=== PATIENT | female | born 1970 | race Caucasian/White ===

== ENCOUNTER 2017-03-27 05:19 | Inpatient (IN) | payer OTHER ==
[~2017-03-27] VITALS: Ht 167.6 cm; Wt 72.0 kg
[~2017-03-27 05:19] MED LIST: ACET325T33 PO; ALPR0.5T PO; CARI350T29 PO; GABA300C16 PO; METF500T NGT; NICO-524 TRANSDERM; OXYC15TA PO; QUET300T13 PO; TOR30I IV; TYL650R PR; ZOF4I IV
[2017-07-19] VITALS (7 sets, daily range): BP systolic 101–124; BP diastolic 62–76; PULSE 67–90; RESP 18–20; Ht 167.6 cm; Wt 72.0 kg
[2017-07-19] MEDS ORDERED: NITROGLYCERIN (SL) 0.4 MG TAB SL PRN (12:30)
[2017-07-19] MEDS ORDERED: morphine 2 MG INJ IV PRN ×2 (12:30→15:30)
[2017-07-19] MEDS ORDERED: MAGNESIUM HYDROXIDE 30ML CUP PO PRN (12:30)
[2017-07-19] MEDS ORDERED: ACETAMINOPHEN 325 MG TAB PO PRN (12:30)
[2017-07-19] MEDS ORDERED: hydrALAzine 20 MG INJ IV PRN (12:30)
[2017-07-19] MEDS ORDERED: NACL 0.9% 3 ML SYG IV SCH (12:30)
[2017-07-19] MEDS ORDERED: NA PHOSPHATE/BIPHOS 133 ML ENEMA PR PRN (12:30)
[2017-07-19] MEDS ORDERED: LORAZEPAM 2 MG INJ IV PRN (12:30)
[2017-07-19] MEDS ORDERED: ONDANSETRON 4 MG INJ IV PRN (12:30)
[2017-07-19] MEDS ORDERED: ALBUTEROL/IPRATROPIUM (NEB) 3 ML AMP HHN PRN (12:30)
[2017-07-19] MEDS ORDERED: DOCUSATE SODIUM 100 MG CAP PO PRN (12:30)
[2017-07-19] MEDS: INSULIN ASPART [NOVOLOG] 3 ML PEN SC SCH ×3 (13:00→22:46)
[2017-07-19] MEDS: HYDROCODONE/APAP (5/325) TAB PO PRN (13:03)
[2017-07-19 13:58] LABS: PROTIME 13.2 Sec (12.2-14.2)
[2017-07-19 13:59] LABS: PARTIAL THROMBOPLASTIN TIME 28.8 Sec (25.0-35.0)
[2017-07-19] MEDS: SOD CHLORIDE 0.9% 1,000 ML IV SCH (13:59)
[2017-07-19] MEDS: LEVOFLOXACIN 750MG/D5W (PMX) 150 ML IVPB SCH (14:13)
[2017-07-19] MEDS: HEPARIN 5,000 UNIT/0.5 ML VIAL SC SCH ×2 (14:32→21:00)
[2017-07-19] MEDS ORDERED: ALPRAZOLAM 0.5 MG TAB PO PRN (15:30)
[2017-07-19] MEDS: oxyCODONE 15 MG TAB PO SCH ×2 (17:31→22:29)
--- NOTE | 2017-07-19 17:45 | HP ---
DATE OF ADMISSION: 07/19/2017 CHIEF COMPLAINT: Epigastric pain and vomiting. HISTORY OF PRESENT ILLNESS: The patient is a 47-year-old female with a past medical history of fibromyalgia, diabetes, hypertension, asthma and depression who presented at an outside hospital earlier today because of epigastric pain and vomiting symptoms. She was also feeling weakness and dizziness, but no loss of consciousness, no headache. She had been feeling weakness for the last 5 days, dizziness for 1 day, and also some increased sweats and decreased urine frequency at home for 1 day prior to admission. She was transferred over here from outside hospital [place] due to insurance purposes, but she did have a workup there earlier this morning. The patient describes her vomiting symptoms also for the last 1 or 2 days at home, nonbilious and nonbloody. She has been taking Keflex at home, and denies any dysuria or hematuria. No upper or lower GI bleeding. No diarrhea or constipation. No chest pain or shortness of breath. The patient was at [facility] from the end of 06/2017 until 07/08/2017, so for about 5 days she was treated for sepsis secondary to a UTI, and she went home on Keflex. Since that time she has been having the weakness symptoms as mentioned above. When she presented at the outside hospital today she had a lactic acid elevated at 4.2, and a white count of 16,000, but her chest x-ray was negative. UA was negative. A head CT was performed because she had a lot of nystagmus there, but the results showed no acute intracranial pathology. She receive IV fluids and meclizine as well as antiemetics at the outside hospital before being transferred over here. PAST MEDICAL HISTORY: As stated above. ALLERGIES: CHICKEN, PORK, FISH, CITRUS FRUITS. PAST SURGICAL HISTORY: She has had some kind of brain surgery in the past, a cholecystectomy and appendectomy in the past. FAMILY HISTORY: Mother had thyroid problems. Father with diabetes. SOCIAL HISTORY: She smokes half a pack cigarettes a day. Negative for alcohol use. PHYSICAL EXAMINATION: VITAL SIGNS: T-max 98.4, pulse 68 to 80, respirations 20, blood pressure 101/69, O2 saturation 99 percent on room air. GENERAL APPEARANCE: The patient is lying in bed, answering questions appropriately, in no acute distress. HEENT: Pupils are equal, round and reactive to light. Extraocular muscles areintact. NECK: Supple. No thyromegaly. LUNGS: Clear to auscultation bilaterally. CARDIOVASCULAR: S1 and S2 heard. No rubs or gallops. ABDOMEN: Soft, nontender and nondistended. Normal bowel sounds. No rebound or guarding. MUSCULOSKELETAL: No lower extremity edema bilaterally. NEUROLOGIC: No focal deficits. LABORATORY DATA: WBC 16.2, hemoglobin 14, hematocrit 45, platelets normal. The basic metabolic panel was normal. The UA was negative. Nitrites negative. Leukocyte esterase positive. IMAGING DATA: Chest x-ray showed no acute findings and again the head CT results are as mentioned above. ASSESSMENT AND PLAN: The patient is a 46-year-old female with prior history of hypertension, diabetes, fibromyalgia, ankle fracture and asthma who presents with weakness, dizziness and vomiting with signs of sepsis with unclear source. 1. Weakness and dizziness with signs of sepsis, again her lactic acid is 4.2. Continue aggressive fluid IV hydration, recheck urine test here while in the hospital. If she has leukocytosis for now put her on low-dose broad-spectrum antibioticsuntil we get final urine results. Follow culture results as well. Tylenol p.r.n. pain and fevers. Also check TSH, A1c and lipid panel. Continue to trend the lactic acid as well. 2. Type 2 type 2 diabetes. Check A1c. Put her on sliding scale insulin. 3. Essential hypertension. Continue current blood pressure medications including hydralazine p.r.n. systolic greater than 160. 4. Smoking history. Counseled about cessation. Continue to [____] asthma. For present shortness of breath symptoms DuoNebs p.r.n. 5. History of fibromyalgia. Continue current pain medications, but at a lower dose and frequency than what she is on at home given her weakness symptoms. We will also get pain management consultation to help with management of this as she is also showing [____]of drug-seeking behavior. 6. GI prophylaxis. PPI. 7. DVT prophylaxis. Heparin subcutaneous. Consider PT consult as well especially given her history of ankle fracture. 8. Vertigo. Continue to monitor for now. IV fluids, PT consult. Dictated By: Braulio Obando MD /mark/renato /Document#: [id number]
[2017-07-19] MEDS ORDERED: QUETIAPINE 100 MG TAB PO SCH (21:00)
[2017-07-19] MEDS: CARISOPRODOL 350 MG TAB PO SCH (22:23)
[2017-07-19] MEDS: GABAPENTIN 300 MG CAP PO SCH (22:24)
[2017-07-19] MEDS: QUETIAPINE 100 MG TAB PO SCH (22:24)
[2017-07-20] VITALS (11 sets, daily range): BP systolic 111–115; BP diastolic 70–82; PULSE 66–88; RESP 18–20
[2017-07-20] MEDS ORDERED: ACCU-CHEK XX SCH (02:00)
[2017-07-20] MEDS: SOD CHLORIDE 0.9% 1,000 ML IV SCH ×3 (05:21→18:20)
[2017-07-20] MEDS: PANTOPRAZOLE (EC) 40 MG TAB PO SCH (05:23)
[2017-07-20 07:03] LABS: BASOPHILS % 0.5 % (0.0-2.0); EOSINOPHILS # 0.2 10^3/ul (0.0-0.5); HEMOGLOBIN 11.2 g/dl (12.0-16.0); LYMPHOCYTES # 2.7 10^3/ul (0.8-2.9); LYMPHOCYTES % 35.7 % (15.0-51.0); MEAN CORPUSCULAR HEMOGLOBIN 26.7 pg (29.0-33.0); MEAN CORPUSCULAR HGB CONC 31.1 g/dl (32.0-37.0); MEAN CORPUSCULAR VOLUME 85.9 fl (82.0-101.0); MEAN PLATELET VOLUME 11.6 fl (7.4-10.4); MONOCYTE # 0.4 10^3/ul (0.3-0.9); MONOCYTES % 5.2 % (0.0-11.0); NEUTROPHIL # 4.2 10^3/ul (1.6-7.5); NEUTROPHILS % 56.2 % (39.0-77.0); PLATELET COUNT 184 10^3/UL (140-415); RED BLOOD COUNT 4.19 10^6/ul (4.20-5.40); RED CELL DISTRIBUTION WIDTH 14.6 % (11.5-14.5); WHITE BLOOD COUNT 7.4 10^3/ul (4.8-10.8)
[2017-07-20] MEDS ORDERED: INSULIN ASPART [NOVOLOG] 3 ML PEN SC SCH (07:25)
[2017-07-20] MEDS: HYDROCODONE/APAP (5/325) TAB PO PRN (07:41)
[2017-07-20 07:53] LABS: THYROID STIMULATING HORMONE 3.64 MIU/L (0.465-4.680)
[2017-07-20 08:00] LABS: CALCIUM 8.2 mg/dl (8.4-10.2); CHOL/HDL RATIO 3.4 RATIO; CREATININE 0.62 mg/dl (0.44-1.00); MAGNESIUM 1.6 mg/dl (1.7-2.5); PHOSPHORUS 3.7 mg/dl (2.5-4.9); POTASSIUM 3.7 mmol/L (3.5-5.1)
[2017-07-20] MEDS: Insulin NOVOLOG SS MILD Algorithm (SS with meals and bedtime) SC SCH ×4 (08:06→21:00)
[2017-07-20] MEDS: CARISOPRODOL 350 MG TAB PO SCH ×3 (09:11→20:35)
[2017-07-20] MEDS: NICOTINE (21 MG/24 HR) PATCH TRANSDERM SCH (09:12)
[2017-07-20] MEDS: LEVOFLOXACIN 750MG/D5W (PMX) 150 ML IVPB SCH (09:19)
[2017-07-20] MEDS: GABAPENTIN 300 MG CAP PO SCH ×3 (09:19→20:35)
[2017-07-20] MEDS: HEPARIN 5,000 UNIT/0.5 ML VIAL SC SCH ×2 (09:31→20:49)
--- NOTE | 2017-07-20 12:09 | PDOCDIS ---
Discharge Instructions CONDITION Patient Condition: Stable HOME CARE INSTRUCTIONS: Diet Instructions: Low Fat /Cholesterol ACTIVITY: Activity Restrictions: Slowly Increase Activity Avoid heavy lifting FOLLOW UP/APPOINTMENTS Follow-up Plan Please take your medications as prescribed, please follow-up with her regular doctor in the clinic in the next 1 week. MALINDA DAVIS Jul 20, 2017 12:09
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
[2017-07-20] MEDS ORDERED: LEVO750T8 PO (12:22)
--- NOTE | 2017-07-20 12:22 | DS ---
Date/Time of Note Date/Time of Note DATE: 07/20/17 TIME: 12:15 Discharge Summary Admission/Discharge Info Admit Date/Time Jul 19, 2017 at 11:40 Discharge Date/Time Discharge Diagnosis 1. Weakness and dizziness with signs of sepsis-improved 2. Type 2 type 2 diabetes. 3. Essential hypertension. 4. Smoking history. Counseled about cessation. 5. History of fibromyalgia. 6. Vertigo. Patient Condition: Stable Hospital Course 47-year-old female with a past medical history of fibromyalgia, diabetes, hypertension, asthma, smoking, and depression who presented at an outside hospital before being transferred to our hospital due to insurance reasons because of epigastric pain and vomiting symptoms. She was also feeling weakness and dizziness. She was found with slightly elevated lactic acid level , with leukocytosis, but no fevers, she was admitted and given IV fluids and antibiotics although there was no clear source of infection. Patient had been treated about 10 days prior to this admission for sepsis secondary to UTI at an outside hospital as well. He is also seen by pain management doctor because of chronic low back pain issues, and there was some adjustments made to her pain control medications. Over the course of her hospital stay her substance symptoms resolved, her white count normalized, she had no fevers, she was able to ambulate, tolerated p.o. diet, with physical therapy as well. Her lactic acidosis also resolved as well. She was counseled on smoking cessation as well. See below for full list of discharge medications. Home Meds Active Scripts Acetaminophen* (Acephen*) 650 Mg Supp, 650 MG IN Q6H Y for PAIN LEVEL 1-3 OR FEVER for 30 Days, SUPP Prov:GABRIEL,KAI V. INCIDENT COORDINATOR 05/10/16 Acetaminophen* (Tylenol*) 325 Mg Tablet, 650 MG PO Q6H Y for PAIN LEVEL 1-3 OR FEVER for 30 Days, TAB Prov:GABRIEL,KAI V. INCIDENT COORDINATOR 05/10/16 Ondansetron Hcl* (Zofran*) 2 Mg/Ml Soln, 4 MG IV Q6H Y for NAUSEA AND/OR VOMITING for 30 Days Prov:GABRIEL,KAI V. INCIDENT COORDINATOR 05/10/16 Nicotine* (Nicoderm* Patch) 21 mg/day Patch, 1 PATCH TRANSDERM DAILY for 30 Days , PATCH Prov:GABRIEL,KAI V. INCIDENT COORDINATOR 05/10/16 Metformin Hcl (Glucophage) 500 Mg Tablet, 500 MG NGT BID WITH MEALS for 30 Days , TAB Prov:KAI GABRIEL V. INCIDENT COORDINATOR 05/10/16 Ketorolac Tromethamine* (Ketorolac Tromethamine*) 30 Mg/Ml Vial, 30 MG IV Q6H Y for PAIN LEVEL 1-3 for 30 Days, VIAL Prov:KAI GABRIEL V. INCIDENT COORDINATOR 05/10/16 Reported Medications Alprazolam* (Xanax*) 0.5 Mg Tab, 0.5 MG PO Q8H Y for ANXIETY, TAB 05/07/16 Quetiapine Fumarate* (Seroquel*) 300 Mg Tablet, 300 MG PO HS, TAB 05/07/16 Gabapentin* (Gabapentin*) 300 Mg Capsule, 600 MG PO TID, #180 CAP 05/07/16 Carisoprodol* (Carisoprodol*) 350 Mg Tablet, 350 MG PO TID, TAB 05/07/16 Oxycodone Hcl* (IR) (Oxycodone Hcl*) 15 Mg Tablet, 15 MG PO QID, TAB 05/07/16 Follow-up Plan Please take your medications as prescribed, please follow-up with her regular doctor in the clinic in the next 1 week. Primary Care Provider Barb Dickerson Time spent on discharge: > 30 minutes Pending Labs Laboratory Tests Test 07/19/17 13:20 07/19/17 13:28 07/19/17 15:53 07/19/17 17:29 Prothrombin Time 13.2Sec (12.2-14.2) Prothrombin Time Ratio 1.0 INR International Normalized Ratio 1.00 Activated Partial Thromboplast Time 28.8Sec (25.0-35.0) Free Thyroxine 0.99ng/dl (0.64-1.79) Lipase 58U/L (23-300) Ethyl Alcohol Level < 10.0mg/dl Bedside Glucose 113mg/dL (70-220) Test 07/19/17 18:51 07/19/17 22:41 07/20/17 00:42 07/20/17 06:07 Lactic Acid Level 1.3mmol/L (0.5-2.0) 1.3mmol/L (0.5-2.0) 1.3mmol/L (0.5-2.0) Bedside Glucose 188mg/dL (70-220) White Blood Count 7.410^3/ul (4.8-10.8) Red Blood Count 4.1910^6/ul (4.20-5.40) Hemoglobin 11.2g/dl (12.0-16.0) Hematocrit 36.0% (37.0-47.0) Mean Corpuscular Volume 85.9fl (82.0-101.0) Mean Corpuscular Hemoglobin 26.7pg (29.0-33.0) Mean Corpuscular Hemoglobin Concent 31.1g/dl (32.0-37.0) Red Cell Distribution Width 14.6% (11.5-14.5) Platelet Count 93076^3/UL (140-415) Mean Platelet Volume 11.6fl (7.4-10.4) Neutrophils % 56.2% (39.0-77.0) Lymphocytes % 35.7% (15.0-51.0) Monocytes % 5.2% (0.0-11.0) Eosinophils % 2.0% (0.0-7.0) Basophils % 0.5% (0.0-2.0) Nucleated Red Blood Cells % 0.0/100WBC (0.0-0.0) Neutrophils # 4.210^3/ul (1.6-7.5) Lymphocytes # 2.710^3/ul (0.8-2.9) Monocytes # 0.410^3/ul (0.3-0.9) Eosinophils # 0.210^3/ul (0.0-0.5) Basophils # 0.010^3/ul (0.0-0.1) Nucleated Red Blood Cells # 0.010^3/ul (0.0-0.0) Sodium Level 137mmol/L (135-144) Potassium Level 3.7mmol/L (3.5-5.1) Chloride Level 105mmol/L (97-110) Carbon Dioxide Level 29mmol/L (21-31) Anion Gap 7 (8-16) Blood Urea Nitrogen 3mg/dl (7-20) Creatinine 0.62mg/dl (0.44-1.00) Glucose Level 146mg/dl (70-220) Hemoglobin A1c 8.2% (0-5.9) Calcium Level 8.2mg/dl (8.4-10.2) Phosphorus Level 3.7mg/dl (2.5-4.9) Magnesium Level 1.6mg/dl (1.7-2.5) Triglycerides Level 229mg/dl (0-149) Cholesterol Level 125mg/dl (100-200) LDL Cholesterol, Calculated 43mg/dl HDL Cholesterol 36mg/dl (34-88) Cholesterol/HDL Ratio 3.4RATIO Thyroid Stimulating Hormone (TSH) 3.640MIU/L (0.465-4.680) Test 07/20/17 08:03 Bedside Glucose 161mg/dL (70-220) MALINDA DAVIS Jul 20, 2017 12:22
[2017-07-20] MEDS ORDERED: MAGNESIUM SULFATE 1 GM/D5W 100 ML IVPB ONE (14:00)
[2017-07-20] MEDS: oxyCODONE 15 MG TAB PO SCH ×3 (15:10→20:36)
[2017-07-20] MEDS: INSULIN ASPART [NOVOLOG] 3 ML PEN SC SCH ×2 (17:23→20:59)
--- NOTE | 2017-07-20 18:59 | PN ---
DATE: 07/20/2017 SUBJECTIVE DATA: Patient is alert, feels better, looks comfortable. Denies pain. No vomiting. No diarrhea. No dysuria. LABORATORY AND DIAGNOSTIC DATA: WBC 7.4, no shift, no bands. BUN 3, creatinine 0.62. Lactic acid 2.6. MICROBIOLOGY: Urine culture pending. ANTIMICROBIALS: The patient is on Levaquin. PHYSICAL EXAMINATION: GENERAL: Well-developed, middle-aged woman who is alert, in no distress. HEENT: Head atraumatic, normocephalic. Sclerae anicteric. Buccal mucosa pink. NECK: Supple. CHEST: Chest rise symmetrical. Breath sounds clear. HEART: S1, S2. ABDOMEN: Soft, bowel sounds present with left CVA tenderness absent. EXTREMITIES: Without cyanosis. The patient has right lower extremity chronic changes status post ankle surgery, no erythema. ASSESSMENT: 1. Systemic inflammatory response syndrome on admission, with dizziness and decreased urine output at home as well as increased sweating. 2. History of recent pyelonephritis with bacteremia for which patient was hospitalized at [facility] and was in ICU for 3 days, the patient apparently was discharged home on 7 days to oral Keflex which she completed. 3. Fibromyalgia. 4. History of cerebrovascular accident. 5. Diabetes. 6. Hypertension. 7. History of right ankle surgery with hardware placement. PLAN: 1. The patient remains stable. 2. We are going to send urine for culture. 3. Continue Levaquin for now. Dictated By: Jeffrey Dickerson NP /mark/dejon /Document#: [id number]
[2017-07-20] MEDS ORDERED: INSULIN GLARGINE [LANtus] 3 ML PEN SC SCH (20:00)
[2017-07-20] MEDS: QUETIAPINE 100 MG TAB PO SCH (20:58)
[2017-07-20] MEDS ORDERED: MICONAZOLE 200 MG VAG SUPP VAG SCH (21:00)
[2017-07-20 23:23] LABS: ADD UMIC NO; UR ASCORBIC ACID NEGATIVE (NEGATIVE); UR BILIRUBIN (Dip) NEGATIVE (NEGATIVE); UR BLOOD (Dip) NEGATIVE (NEGATIVE); UR CLARITY CLEAR (CLEAR); UR COLOR STRAW (YELLOW); UR GLUCOSE (Dip) NEGATIVE (NEGATIVE); UR KETONES (Dip) NEGATIVE (NEGATIVE); UR LEUKOCYTE ESTERASE (Dip) NEGATIVE Leu/ul (NEGATIVE); UR NITRITE (Dip) NEGATIVE (NEGATIVE); UR SPECIFIC GRAVITY (Dip) 1.006 (1.003-1.030); UR TOTAL PROTEIN (Dip) NEGATIVE (NEGATIVE); UR UROBILINOGEN (Dip) NEGATIVE (NEGATIVE)
[2017-07-21] VITALS (8 sets, daily range): BP systolic 106–128; BP diastolic 61–84; PULSE 72–83; RESP 18–20
[2017-07-21] MEDS: SOD CHLORIDE 0.9% 1,000 ML IV SCH (00:40)
[2017-07-21] MEDS ORDERED: ACCU-CHEK XX SCH ×2 (02:00)
[2017-07-21] MEDS: PANTOPRAZOLE (EC) 40 MG TAB PO SCH (06:32)
[2017-07-21] MEDS: INSULIN ASPART [NOVOLOG] 3 ML PEN SC SCH ×2 (07:45→11:50)
[2017-07-21 07:54] LABS: BASOPHILS % 0.6 % (0.0-2.0); EOSINOPHILS # 0.1 10^3/ul (0.0-0.5); EOSINOPHILS % 1.9 % (0.0-7.0); HEMATOCRIT 35.2 % (37.0-47.0); LYMPHOCYTES # 2.6 10^3/ul (0.8-2.9); LYMPHOCYTES % 38.5 % (15.0-51.0); MEAN CORPUSCULAR HEMOGLOBIN 26.9 pg (29.0-33.0); MEAN CORPUSCULAR HGB CONC 31.3 g/dl (32.0-37.0); MEAN CORPUSCULAR VOLUME 86.1 fl (82.0-101.0); MEAN PLATELET VOLUME 11.5 fl (7.4-10.4); MONOCYTE # 0.4 10^3/ul (0.3-0.9); MONOCYTES % 6.3 % (0.0-11.0); NEUTROPHIL # 3.6 10^3/ul (1.6-7.5); NEUTROPHILS % 52.4 % (39.0-77.0); PLATELET COUNT 176 10^3/UL (140-415); RED BLOOD COUNT 4.09 10^6/ul (4.20-5.40); RED CELL DISTRIBUTION WIDTH 14.5 % (11.5-14.5); WHITE BLOOD COUNT 6.8 10^3/ul (4.8-10.8)
[2017-07-21 08:27] LABS: ANION GAP 6 (8-16); CALCIUM 8.4 mg/dl (8.4-10.2); CARBON DIOXIDE 29 mmol/L (21-31); CHLORIDE 108 mmol/L (97-110); CREATININE 0.57 mg/dl (0.44-1.00); GLUCOSE 142 mg/dl (70-220); POTASSIUM 3.9 mmol/L (3.5-5.1); SODIUM 139 mmol/L (135-144)
[2017-07-21 08:28] LABS: BLOOD UREA NITROGEN < 2 mg/dl (7-20)
[2017-07-21] MEDS: LEVOFLOXACIN 750MG/D5W (PMX) 150 ML IVPB SCH (08:30)
[2017-07-21] MEDS: oxyCODONE 15 MG TAB PO SCH ×2 (08:31→12:27)
[2017-07-21] MEDS: NICOTINE (21 MG/24 HR) PATCH TRANSDERM SCH (08:31)
[2017-07-21] MEDS: GABAPENTIN 300 MG CAP PO SCH ×2 (08:31→12:27)
[2017-07-21] MEDS: CARISOPRODOL 350 MG TAB PO SCH ×2 (08:31→12:26)
[2017-07-21] MEDS: HEPARIN 5,000 UNIT/0.5 ML VIAL SC SCH (08:33)
[2017-07-21] MEDS ORDERED: LEVO500T10 PO (11:33)
--- NOTE | 2017-07-21 11:35 | DS ---
Date/Time of Note Date/Time of Note DATE: 07/21/17 TIME: 11:34 Discharge Summary Admission/Discharge Info Admit Date/Time Jul 19, 2017 at 11:40 Discharge Date/Time Discharge Diagnosis 1. Weakness and dizziness with signs of sepsis-improved 2. Type 2 type 2 diabetes. 3. Essential hypertension. 4. Smoking history. Counseled about cessation. 5. History of fibromyalgia. 6. Vertigo. Hospital Course 47-year-old female with a past medical history of fibromyalgia, diabetes, hypertension, asthma, smoking, and depression who presented at an outside hospital before being transferred to our hospital due to insurance reasons because of epigastric pain and vomiting symptoms. She was also feeling weakness and dizziness. She was found with slightly elevated lactic acid level , with leukocytosis, but no fevers, she was admitted and given IV fluids and antibiotics although there was no clear source of infection. Patient had been treated about 10 days prior to this admission for sepsis secondary to UTI at an outside hospital as well. He is also seen by pain management doctor because of chronic low back pain issues, and there was some adjustments made to her pain control medications. Over the course of her hospital stay her substance symptoms resolved, her white count normalized, she had no fevers, she was able to ambulate, tolerated p.o. diet, with physical therapy as well. Patient had one more night the night of October 19, 2017 as her lactic acid was still slightly elevated earlier that day, but came down to normal levels the next day as well. She was counseled on smoking cessation as well. See below for full list of discharge medications. Home Meds Active Scripts Levofloxacin* (Levofloxacin*) 500 Mg Tablet, 500 MG PO DAILY for 5 Days, TAB Prov:MALINDA DAVIS 07/21/17 Acetaminophen* (Acephen*) 650 Mg Supp, 650 MG SC Q6H Y for PAIN LEVEL 1-3 OR FEVER for 30 Days, SUPP Prov:GABRIEL,KAI V. AEROBICS TEACHER 05/10/16 Acetaminophen* (Tylenol*) 325 Mg Tablet, 650 MG PO Q6H Y for PAIN LEVEL 1-3 OR FEVER for 30 Days, TAB Prov:GABRIEL,KAI V. AEROBICS TEACHER 05/10/16 Ondansetron Hcl* (Zofran*) 2 Mg/Ml Soln, 4 MG IV Q6H Y for NAUSEA AND/OR VOMITING for 30 Days Prov:KAI GABRIEL Mehnaz. AEROBICS TEACHER 05/10/16 Nicotine* (Nicoderm* Patch) 21 mg/day Patch, 1 PATCH TRANSDERM DAILY for 30 Days , PATCH Prov:KAI GABRIEL Mehnaz. AEROBICS TEACHER 05/10/16 Metformin Hcl (Glucophage) 500 Mg Tablet, 500 MG NGT BID WITH MEALS for 30 Days , TAB Prov:KAI GABRIEL Mehnaz. AEROBICS TEACHER 05/10/16 Ketorolac Tromethamine* (Ketorolac Tromethamine*) 30 Mg/Ml Vial, 30 MG IV Q6H Y for PAIN LEVEL 1-3 for 30 Days, VIAL Prov:KAI GABRIEL V. AEROBICS TEACHER 05/10/16 Reported Medications Alprazolam* (Xanax*) 0.5 Mg Tab, 0.5 MG PO Q8H Y for ANXIETY, TAB 05/07/16 Quetiapine Fumarate* (Seroquel*) 300 Mg Tablet, 300 MG PO HS, TAB 05/07/16 Gabapentin* (Gabapentin*) 300 Mg Capsule, 600 MG PO TID, #180 CAP 05/07/16 Carisoprodol* (Carisoprodol*) 350 Mg Tablet, 350 MG PO TID, TAB 05/07/16 Oxycodone Hcl* (IR) (Oxycodone Hcl*) 15 Mg Tablet, 15 MG PO QID, TAB 05/07/16 Follow-up Plan Please take your medications as prescribed, please follow-up with her regular doctor in the clinic in the next 1 week. Primary Care Provider Barb Dickerson Pending Labs Laboratory Tests Test 07/20/17 12:14 07/20/17 17:14 07/20/17 17:38 07/20/17 20:15 Bedside Glucose 258mg/dL (70-220) 158mg/dL (70-220) Lactic Acid Level 2.6mmol/L (0.5-2.0) 1.9mmol/L (0.5-2.0) Urine Color STRAW (YELLOW) Urine Clarity CLEAR (CLEAR) Urine pH 7.0 (5.0-9.0) Urine Specific [place] 1.006 (1.003-1.030) Urine Ketones NEGATIVEmg/dL (NEGATIVE) Urine Nitrite NEGATIVEmg/dL (NEGATIVE) Urine Bilirubin NEGATIVEmg/dL (NEGATIVE) Urine Urobilinogen NEGATIVEmg/dL (NEGATIVE) Urine Leukocyte Esterase NEGATIVELeu/ul (NEGATIVE) Urine Hemoglobin NEGATIVEmg/dL (NEGATIVE) Urine Glucose NEGATIVEmg/dL (NEGATIVE) Urine Total Protein NEGATIVEmg/dl (NEGATIVE) Test 07/20/17 20:54 07/21/17 00:43 07/21/17 07:18 07/21/17 07:36 Bedside Glucose 178mg/dL (70-220) 146mg/dL (70-220) Lactic Acid Level 1.2mmol/L (0.5-2.0) 1.5mmol/L (0.5-2.0) White Blood Count 6.810^3/ul (4.8-10.8) Red Blood Count 4.0910^6/ul (4.20-5.40) Hemoglobin 11.0g/dl (12.0-16.0) Hematocrit 35.2% (37.0-47.0) Mean Corpuscular Volume 86.1fl (82.0-101.0) Mean Corpuscular Hemoglobin 26.9pg (29.0-33.0) Mean Corpuscular Hemoglobin Concent 31.3g/dl (32.0-37.0) Red Cell Distribution Width 14.5% (11.5-14.5) Platelet Count 59011^3/UL (140-415) Mean Platelet Volume 11.5fl (7.4-10.4) Neutrophils % 52.4% (39.0-77.0) Lymphocytes % 38.5% (15.0-51.0) Monocytes % 6.3% (0.0-11.0) Eosinophils % 1.9% (0.0-7.0) Basophils % 0.6% (0.0-2.0) Nucleated Red Blood Cells % 0.0/100WBC (0.0-0.0) Neutrophils # 3.610^3/ul (1.6-7.5) Lymphocytes # 2.610^3/ul (0.8-2.9) Monocytes # 0.410^3/ul (0.3-0.9) Eosinophils # 0.110^3/ul (0.0-0.5) Basophils # 0.010^3/ul (0.0-0.1) Nucleated Red Blood Cells # 0.010^3/ul (0.0-0.0) Sodium Level 139mmol/L (135-144) Potassium Level 3.9mmol/L (3.5-5.1) Chloride Level 108mmol/L (97-110) Carbon Dioxide Level 29mmol/L (21-31) Anion Gap 6 (8-16) Blood Urea Nitrogen < 2mg/dl (7-20) Creatinine 0.57mg/dl (0.44-1.00) Glucose Level 142mg/dl (70-220) Calcium Level 8.4mg/dl (8.4-10.2) Microbiology Date/Time Source Procedure Growth Status 07/20/17 20:15 Clean Catch Urine Urine Culture - Preliminary NO GROWTH AFTER 24 HOURS Resulted MALINDA DAVIS Jul 21, 2017 11:35
[2017-07-21] MEDS ORDERED: [UNRECOGNIZED DRUG - CODE] VAG (11:36)
--- NOTE | 2017-07-21 20:27 | PN ---
DATE: 07/21/2017 SUBJECTIVE DATA: No acute changes. The patient is alert, feels good. Denies pain or discomfort. No fevers. MICROBIOLOGIES: Urine culture preliminary negative. LABORATORY AND DIAGNOSTIC DATA: Urinalysis was negative. PHYSICAL EXAMINATION: GENERAL: Well-developed, middle-aged woman who is alert, in no distress. HEENT: Head atraumatic, normocephalic. Sclerae anicteric. Buccal mucosa pink. NECK: Supple. CHEST: Chest rise symmetrical. Breath sounds clear. HEART: S1, S2. ABDOMEN: Soft, bowel sounds present. EXTREMITIES: No cyanosis. ASSESSMENT: 1. Systemic inflammatory response syndrome. 2. History of recent pyelonephritis with bacteremia per patient, hospitalized at [facility], completed 2 weeks of antibiotics. 3. Diabetes. 4. Hypertension. 5. History of cerebrovascular accident (CVA). 6. Fibromyalgia myalgia with chronic pain syndrome. PLAN: 1. The patient remains stable. 2. So far, urine culture negative. 3. She is nontoxic and plan to discharge her home to complete short course of antibiotics with Levaquin. 4. The patient to be followed by primary care physician as an outpatient. Dictated By: Jeffrey Dickerson NP /mark/dejon /Document#: [id number]
== END 2017-07-21 13:35 | disposition home or self-care (01) | DRG 872 ==
LOC: TEL 07-19 11:40
PROVIDERS: ADMIT Internal Medicine; ATTEND Internal Medicine
DX: A41.9 Sepsis, unspecified organism (principal); I10 Essential (primary) hypertension; E11.9 Type 2 diabetes mellitus without complications; Z72.0 Tobacco use; M79.7 Fibromyalgia; Z76.5 Malingerer [conscious simulation]; R42 Dizziness and giddiness; G89.4 Chronic pain syndrome; M25.571 Pain in right ankle and joints of right foot
CPT/HCPCS: 80048; 80061; 80306; 80307; 81003; 82962; 83036; 83605; 83690; 83735; 84100; 84439; 84443; 85025; 85610; 85730; 87040; 87086; 97161; J1644; J1815; J1956; J2270; J3475; J7030

== ENCOUNTER 2018-01-10 16:50 | Inpatient (IN) | END 2018-01-12 17:54 | disposition home or self-care (01) | DRG 392 ==

== ENCOUNTER 2018-05-11 13:01 | Emergency (ER) | END 2018-05-11 14:30 | disposition home or self-care (01) ==